=== PATIENT | female | born 1980 | race Caucasian/White ===

== ENCOUNTER → 2016-09-20 | Outpatient (CLI) | payer OTHER ==
[~2016-09-20] MED LIST: CIPR500T87 PO; NO HOME MEDS
[2016-09-20 09:47] LABS: ASPARTATE AMINO TRANSFERASE 15 U/L (15-37); BLOOD UREA NITROGEN 16 mg/dL (7-18)
== END | disposition home or self-care (01) ==
LOC: CFH 06:53
PROVIDERS: ATTEND Nurse Practitioner Family
DX: Z00.00 Encounter for general adult medical examination without abnormal findings (principal); J30.9 Allergic rhinitis, unspecified; R53.83 Other fatigue; E66.09 Other obesity due to excess calories; R57.0 Cardiogenic shock
CPT/HCPCS: 36415; 80053; 80061; 82306; 84439; 84443; 85025

== ENCOUNTER 2017-02-25 12:23 | Day surgery (SDC) | payer OTHER ==
[~2017-02-25] VITALS: Ht 163.8 cm; Wt 89.8 kg
[~2017-02-25 12:23] MED LIST changes: +COCAINE TOPICAL SOLN 4%, 4ML ONE; +EPINEPHRINE 1 MG/ML, 1ML ONE; +FENTANYL PF 100 MCG/2ML ONE; +LIDOCAINE/PF 1%, 30ML ONE; +MIDAZOLAM 1 MG/ML, 2ML ONE; +OXYMETAZOLINE NASAL SPRAY 0.05%, 15ML ONE
[2017-02-25] MEDS ORDERED: LACTATED RINGERS 1,000 ML IV SCH (13:13)
[2017-02-25] MEDS ORDERED: REPLENEX PO (13:22)
[2017-02-25] MEDS ORDERED: CYAN10005 PO (13:22)
[2017-02-25 13:42] VITALS: BP 111/74
[2017-02-25 13:54] LABS: HCG UR LOT HCG7030192
[2017-02-25 14:11] LABS: HCG UR OBC PASS
[2017-02-25] MEDS ORDERED: ONDANSETRON 2MG/ML, 2ML ONE (14:30)
[2017-02-25] MEDS ORDERED: NEOSTIGMINE 1 MG/ML, 10ML ONE (14:30)
[2017-02-25] MEDS ORDERED: ROCURONIUM 10MG/ML,5ML ONE (14:30)
[2017-02-25] MEDS ORDERED: DEXAMETHASONE 4 MG/ML, 1ML ONE (14:30)
[2017-02-25] MEDS ORDERED: PROPOFOL 10 MG/ML, 20ML ONE (14:30)
[2017-02-25] MEDS ORDERED: SUGAMMADEX 200 MG/2 ML IVPush ONE (14:30)
[2017-02-25] MEDS ORDERED: GLYCOPYRROLATE 0.4 MG/2 ML, 2ML ONE (14:30)
[2017-02-25] MEDS ORDERED: BACITRACIN OINT 500U/GM, 15 GM TP ONE (15:34)
[2017-02-25] MEDS ORDERED: BACITRACIN OINT 500U/GM, 15 GM ONE (15:58)
[2017-02-25] MEDS ORDERED: ACETAMINOPHEN 650 MG/20.3 ML UDC ONE (16:43)
[2017-02-25] MEDS ORDERED: OXYcodone 5 MG/5 ML ORAL.SOL UDC ONE (16:43)
[2017-02-25] MEDS ORDERED: ACETAMINOPHEN 325 MG TABLET PO PRN (17:00)
[2017-02-25] MEDS ORDERED: OXYcodone 5 MG/5 ML ORAL.SOL UDC PO PRN (17:00)
[2017-02-25] MEDS ORDERED: FENTANYL PF 100 MCG/2ML ONE (17:56)
== END 2017-02-25 19:00 | disposition home or self-care (01) ==
LOC: OUT 12:23
PROVIDERS: ATTEND Otolaryngology
DX: J34.2 Deviated nasal septum (principal); J32.9 Chronic sinusitis, unspecified; J32.1 Chronic frontal sinusitis; Z88.6 Allergy status to analgesic agent; Z88.1 Allergy status to other antibiotic agents; Z88.8 Allergy status to other drugs, medicaments and biological substances
CPT/HCPCS: 30520; 31254; 31256; 81025; 88304; 88311; J0171; J1100; J2250; J2405; J2704; J2710; J3010; J3490; J7120

== ENCOUNTER 2017-02-25 23:40 | Emergency (ER) | payer OTHER ==
[~2017-02-25] VITALS: Ht 167.6 cm; Wt 92.0 kg
[~2017-02-25 23:40] MED LIST changes: -COCAINE TOPICAL SOLN 4%, 4ML ONE; +CYAN10005 PO; -EPINEPHRINE 1 MG/ML, 1ML ONE; -FENTANYL PF 100 MCG/2ML ONE; -LIDOCAINE/PF 1%, 30ML ONE; -MIDAZOLAM 1 MG/ML, 2ML ONE; -OXYMETAZOLINE NASAL SPRAY 0.05%, 15ML ONE; +REPLENEX PO
[2017-02-25] MEDS ORDERED: LIDOCAINE 1%, 20ML ONE (23:56)
[2017-02-25] MEDS ORDERED: OXYMETAZOLINE NASAL SPRAY 0.05%, 15ML ONE (23:56)
[2017-02-26] MEDS ORDERED: HYDROmorphone 1 MG/ML, 1ML ONE (00:08)
[2017-02-26] MEDS ORDERED: ONDANSETRON 2MG/ML, 2ML ONE (00:09)
[2017-02-26] MEDS ORDERED: SODIUM CHLORIDE FLUSH 10ML SYR IVF ONE (00:30)
[2017-02-26] MEDS ORDERED: HYDROmorphone 1 MG/ML, 1ML IVPush PRN (00:30)
[2017-02-26] MEDS ORDERED: SODIUM CHLORIDE 0.9% 1,000ML IVBOLUS ONE (00:30)
[2017-02-26] MEDS ORDERED: ONDANSETRON 2MG/ML, 2ML IVPush ONE (00:30)
[2017-02-26 00:46] VITALS: BP 139/74
== END 2017-02-26 00:49 | disposition home or self-care (01) ==
LOC: ED 23:59
DX: R04.0 Epistaxis (principal); G89.18 Other acute postprocedural pain; Z88.5 Allergy status to narcotic agent; Z88.8 Allergy status to other drugs, medicaments and biological substances
CPT/HCPCS: 96374; 96375; 99284; J1170; J2405; J7030

== ENCOUNTER → 2018-02-19 | Outpatient (CLI) | payer OTHER ==
[~2018-02-19] MED LIST changes: +FLUORESCEIN SODIUM 500 MG/5 ML ONE; +INDIGO CARMINE 0.8%, 5ML ONE; +LIDOCAINE 1%-EPI 1:100K, 30ML ONE; +NEOMY/POLYMYXIN B GU IRR. 1 ML IRRIG ONE; +None at this time; +THROMBIN 5,000 UNIT VIAL TP ONE
[2018-02-19 12:29] LABS: BASOPHILS # (AUTO) 0.03 x10^3/uL (0-0.1); BASOPHILS % (AUTO) 0 % (0-1); EOSINOPHILS # (AUTO) 0.38 x10^3/uL (0-0.4); EOSINOPHILS % (AUTO) 4 % (1-7); LYMPHOCYTES # (AUTO) 1.64 x10^3/uL (1-3.4); LYMPHOCYTES % (AUTO) 17 % (22-44); MD NO; MEAN CORPUSCULAR HEMOGLOBIN 31.3 pg (27.0-34.8); MEAN CORPUSCULAR HGB CONC 34.2 g/dL (32.4-35.8); MEAN CORPUSCULAR VOLUME 91.6 fL (80-100); MEAN PLATELET VOLUME 10.3 fL (7.4-10.4); MONOCYTES # (AUTO) 0.64 x10^3/uL (0.2-0.8); MONOCYTES % (AUTO) 7 % (2-9); NEUTROPHILS # (AUTO) 7.01 x10^3/uL (1.8-6.8); NEUTROPHILS % (AUTO) 72 % (42-75); PLATELET COUNT 197 x10^3/uL (130-400); RED BLOOD COUNT 4.77 x10^6/uL (3.82-5.3); RED CELL DISTRIBUTION WIDTH 13.8 % (9.6-15.2)
[2018-02-19 12:31] LABS: CULTURE INDICATED? NO; MICROSCOPIC NOT IND
[2018-02-19 12:41] LABS: ALANINE AMINOTRANSFERASE 34 U/L (12-78); ALBUMIN 3.7 g/dL (3.4-5.0); ANION GAP 8 mmol/L (5-15); CALCIUM 8.6 mg/dL (8.5-10.1); CHLORIDE 107 mmol/L (98-107); CREATININE 0.71 mg/dL (0.55-1.02)
[2018-02-19 12:46] LABS: ALKALINE PHOSPHATASE 90 U/L (45-117); BILIRUBIN,TOTAL 0.4 mg/dL (0.2-1.0); TOTAL PROTEIN 7.8 g/dL (6.4-8.2)
== END | disposition home or self-care (01) ==
LOC: STAR 11:05
PROVIDERS: ATTEND Obstetrics & Gynecology Gynecology
DX: Z01.818 Encounter for other preprocedural examination (principal); N92.0 Excessive and frequent menstruation with regular cycle; N94.6 Dysmenorrhea, unspecified; N39.3 Stress incontinence (female) (male)
CPT/HCPCS: 36415; 80053; 81003; 84703; 85025

== ENCOUNTER 2018-02-25 05:39 | Day surgery (SDC) | payer OTHER ==
[~2018-02-25] VITALS: Ht 165.1 cm; Wt 105.0 kg
[~2018-02-25 05:39] MED LIST changes: -FLUORESCEIN SODIUM 500 MG/5 ML ONE; -INDIGO CARMINE 0.8%, 5ML ONE; -LIDOCAINE 1%-EPI 1:100K, 30ML ONE; -NEOMY/POLYMYXIN B GU IRR. 1 ML IRRIG ONE; -THROMBIN 5,000 UNIT VIAL TP ONE
[2018-02-25 06:05] VITALS: BP 144/99
[2018-02-25] MEDS: LACTATED RINGERS 1,000 ML IV SCH ×2 (06:28→14:03)
[2018-02-25 06:49] LABS: HCG UR SG 1.022 (1.003-1.030)
[2018-02-25] MEDS ORDERED: MIDAZOLAM 1 MG/ML, 2ML ONE (07:17)
[2018-02-25] MEDS ORDERED: FENTANYL PF 250 MCG/5ML ONE (07:17)
[2018-02-25] MEDS ORDERED: PROPOFOL 10 MG/ML, 20ML ONE (07:20)
[2018-02-25] MEDS ORDERED: ONDANSETRON ODT 8 MG PO ONE (07:30)
[2018-02-25] MEDS ORDERED: SCOPOLAMINE PATCH, 1.5MG PATCH.TD72 TD ONE (07:30)
[2018-02-25] MEDS ORDERED: OxyconTIN ER 10 MG TAB.ER PO ONE (07:30)
[2018-02-25] MEDS ORDERED: ACETAMINOPHEN 500 MG TABLET PO ONE (07:30)
[2018-02-25] MEDS ORDERED: SUGAMMADEX 200 MG/2 ML IVPush ONE (07:57)
[2018-02-25] MEDS ORDERED: hydrALAzine 20 MG/ML, 1ML IV PRN (08:00)
[2018-02-25] MEDS ORDERED: FENTANYL PF 100 MCG/2ML IV PRN (08:00)
[2018-02-25] MEDS ORDERED: PROMETHAZINE 12.5 MG SUPP PR PRN (08:00)
[2018-02-25] MEDS ORDERED: OXYcodone 5 MG/5 ML ORAL.SOL UDC PO PRN (08:00)
[2018-02-25] MEDS ORDERED: LABETALOL 5MG/ML, 20ML IV PRN (08:00)
[2018-02-25] MEDS ORDERED: ROCURONIUM 10MG/ML,5ML ONE (08:00)
[2018-02-25] MEDS ORDERED: DEXAMETHASONE 4 MG/ML, 1ML ONE ×3 (08:00→15:49)
[2018-02-25] MEDS ORDERED: PROMETHAZINE 25 MG/ML, 1ML IV PRN (08:00)
[2018-02-25] MEDS ORDERED: ONDANSETRON 2MG/ML, 2ML IV PRN (08:00)
[2018-02-25] MEDS ORDERED: MIDAZOLAM 1 MG/ML, 2ML IV PRN (08:00)
[2018-02-25] MEDS ORDERED: ALBUTEROL SULFATE 2.5 MG/3 ML NPPB PRN (08:00)
[2018-02-25] MEDS ORDERED: LORazepam 2 MG/ML, 1ML IVPush PRN (08:00)
[2018-02-25] MEDS ORDERED: EPHEDRINE 50 MG/ML, 1ML IVPush PRN (08:00)
[2018-02-25] MEDS ORDERED: HALOPERIDOL 5 MG/ML IV PRN (08:00)
[2018-02-25] MEDS ORDERED: ONDANSETRON ODT 8 MG PO PRN (08:00)
[2018-02-25] MEDS ORDERED: MEPERIDINE/PF 25MG/0.5ML IVPush PRN (08:00)
[2018-02-25] MEDS ORDERED: HYDROmorphone 1 MG/ML, 1ML IV PRN (08:00)
[2018-02-25] MEDS ORDERED: FENTANYL PF 100 MCG/2ML ONE (08:27)
[2018-02-25] MEDS ORDERED: DIPHENHYDRAMINE 50 MG/ML, 1ML IVPush PRN (14:00)
[2018-02-25] MEDS ORDERED: DIPHENHYDRAMINE 50 MG/ML, 1ML ONE (15:49)
[2018-02-25] MEDS ORDERED: KETOROLAC 30 MG/1 ML ONE (15:49)
[2018-02-25] MEDS ORDERED: CEFAZOLIN 1,000 MG ONE (15:49)
== END 2018-02-25 17:45 | disposition home or self-care (01) ==
LOC: OUT 05:39
PROVIDERS: ATTEND Obstetrics & Gynecology Gynecology
DX: D25.1 Intramural leiomyoma of uterus (principal); N92.1 Excessive and frequent menstruation with irregular cycle; N39.3 Stress incontinence (female) (male); N94.6 Dysmenorrhea, unspecified; N81.11 Cystocele, midline; N88.8 Other specified noninflammatory disorders of cervix uteri; Z88.8 Allergy status to other drugs, medicaments and biological substances
CPT/HCPCS: 36415; 57288; 58262; 81025; 85014; 85018; 88307; C1771; J0690; J1100; J1200; J1885; J2250; J2704; J3010; J3490; J7120; Q0162

== ENCOUNTER 2018-03-14 08:34 | Inpatient (IN) | payer OTHER ==
[~2018-03-14] VITALS: Ht 165.1 cm; Wt 103.1 kg
[2018-03-14] MEDS: LACTATED RINGERS 1,000 ML IV SCH ×3 (09:21→21:33)
[2018-03-14 09:22] VITALS: BP 106/72
[2018-03-14] MEDS ORDERED: HYDR-3237 PO (09:22)
[2018-03-14] MEDS ORDERED: FENTANYL PF 250 MCG/5ML ONE (10:15)
[2018-03-14] MEDS ORDERED: MIDAZOLAM 1 MG/ML, 2ML ONE (10:15)
[2018-03-14] MEDS ORDERED: DEXAMETHASONE 4 MG/ML, 1ML ONE ×2 (10:20)
[2018-03-14] MEDS ORDERED: SILVER NITRATE STICK TP ONE (10:21)
[2018-03-14] MEDS ORDERED: LIDOCAINE 1%-EPI 1:100K, 30ML ONE (10:21)
[2018-03-14] MEDS ORDERED: FLUORESCEIN SODIUM 500 MG/5 ML ONE (10:21)
[2018-03-14] MEDS ORDERED: METHYLENE BLUE 10 MG/ML 10ML ONE (10:21)
[2018-03-14] MEDS ORDERED: METRONIDAZOLE PMX 500MG/100ML 100 ML ONE (10:25)
[2018-03-14] MEDS ORDERED: GABAPENTIN 300 MG CAPSULE PO ONE (10:30)
[2018-03-14] MEDS ORDERED: OxyconTIN ER 20 MG TAB.ER PO ONE (10:30)
[2018-03-14] MEDS ORDERED: FAMOTIDINE 20 MG TABLET PO ONE (10:30)
[2018-03-14] MEDS ORDERED: ACETAMINOPHEN 500 MG TABLET PO ONE (10:30)
[2018-03-14] MEDS ORDERED: CEFOTETAN 2 GM ONE (10:32)
[2018-03-14] MEDS ORDERED: ROCURONIUM 10 MG/ML,10ML ONE (10:32)
[2018-03-14] MEDS ORDERED: ONDANSETRON 2MG/ML, 2ML IV PRN (11:00)
[2018-03-14] MEDS ORDERED: LABETALOL 5MG/ML, 20ML IV PRN (11:00)
[2018-03-14] MEDS ORDERED: PROMETHAZINE 25 MG/ML, 1ML IV PRN (11:00)
[2018-03-14] MEDS ORDERED: MEPERIDINE/PF 25MG/0.5ML IVPush PRN (11:00)
[2018-03-14] MEDS ORDERED: OXYcodone 5 MG/5 ML ORAL.SOL UDC PO PRN (11:00)
[2018-03-14] MEDS ORDERED: FENTANYL PF 100 MCG/2ML IV PRN (11:00)
[2018-03-14] MEDS ORDERED: ONDANSETRON 2MG/ML, 2ML ONE ×2 (11:20→12:10)
[2018-03-14] MEDS ORDERED: PROPOFOL 10 MG/ML, 20ML ONE (11:20)
[2018-03-14] MEDS ORDERED: HYDROmorphone 2 MG/ML, 1ML ONE (12:16)
[2018-03-14] MEDS ORDERED: OXYcodone 5 MG/5 ML ORAL.SOL UDC ONE (12:16)
[2018-03-14] MEDS ORDERED: FENTANYL PF 100 MCG/2ML ONE (12:16)
[2018-03-14] MEDS: HYDROmorphone 1 MG/ML, 1ML IV PRN ×4 (12:27→13:41)
[2018-03-14] MEDS ORDERED: HYDROmorphone 2 MG/ML, 1ML IV PRN (12:30)
[2018-03-14] MEDS ORDERED: PROMETHAZINE 25 MG/ML, 1ML ONE (12:36)
[2018-03-14] MEDS ORDERED: DIPHENHYDRAMINE 50 MG/ML, 1ML ONE (13:11)
[2018-03-14] MEDS ORDERED: DIPHENHYDRAMINE 50 MG/ML, 1ML IVPush PRN (13:30)
[2018-03-14] MEDS ORDERED: LACTATED RINGERS 1,000 ML IV SCH (14:30)
[2018-03-14] MEDS ORDERED: ENOXAPARIN 40 MG/0.4 ML SQ SCH (14:30)
[2018-03-14] MEDS: CEFOTETAN PMX 2GM/50ML 50 ML IVPB SCH (15:14)
[2018-03-14] MEDS: METRONIDAZOLE PMX 500MG/100ML 100 ML IV SCH ×3 (16:56→18:28)
[2018-03-14] MEDS: KETOROLAC 30 MG/1 ML IV PRN (19:33)
[2018-03-14 19:40] VITALS: BP 109/74
[2018-03-14] MEDS ORDERED: OXYcodone/APAP 5/325MG TABLET ONE (20:02)
[2018-03-14] MEDS: OXYcodone/APAP 5/325MG TABLET PO PRN (20:04)
[2018-03-15] MEDS: OXYcodone/APAP 5/325MG TABLET PO PRN ×3 (00:05→08:13)
[2018-03-15 01:00] VITALS: BP 110/72
[2018-03-15] MEDS: KETOROLAC 30 MG/1 ML IV PRN (02:22)
[2018-03-15] MEDS: CEFOTETAN PMX 2GM/50ML 50 ML IVPB SCH (03:08)
[2018-03-15] MEDS ORDERED: METRONIDAZOLE PMX 500MG/100ML 100 ML IV SCH (04:00)
[2018-03-15 05:54] LABS: MEAN CORPUSCULAR HEMOGLOBIN 30.8 pg (27.0-34.8); MEAN CORPUSCULAR HGB CONC 34.6 g/dL (32.4-35.8); MEAN CORPUSCULAR VOLUME 89.1 fL (80-100); MEAN PLATELET VOLUME 9.5 fL (7.4-10.4); PLATELET COUNT 210 x10^3/uL (130-400); RED BLOOD COUNT 3.33 x10^6/uL (3.82-5.3); RED CELL DISTRIBUTION WIDTH 13.6 % (9.6-15.2)
[2018-03-15 06:02] LABS: CHLORIDE 107 mmol/L (98-107)
[2018-03-15 06:11] LABS: ANION GAP 9 mmol/L (5-15); CALCIUM 8.4 mg/dL (8.5-10.1); CREATININE 1.01 mg/dL (0.55-1.02)
[2018-03-15 06:21] LABS: BASOPHILS # (AUTO) 0.02 x10^3/uL (0-0.1); BASOPHILS % (AUTO) 0 % (0-1); EOSINOPHILS % (AUTO) 0 % (1-7); LYMPHOCYTES # (AUTO) 0.59 x10^3/uL (1-3.4); LYMPHOCYTES % (AUTO) 4 % (22-44); MD SCAN; MONOCYTES # (AUTO) 0.64 x10^3/uL (0.2-0.8); MONOCYTES % (AUTO) 4 % (2-9); NEUTROPHILS % (AUTO) 91 % (42-75)
[2018-03-15 07:21] VITALS: BP 104/68
[2018-03-15] MEDS: LACTATED RINGERS 1,000 ML IV SCH ×2 (08:00→08:12)
[2018-03-15] MEDS ORDERED: CIPR500T87 PO (09:01)
[2018-03-15] MEDS ORDERED: ENOX40SY4 SQ (09:02)
[2018-03-15] MEDS ORDERED: METR500T PO (09:02)
[2018-03-15 10:46] VITALS: BP 112/72
== END 2018-03-15 11:16 | disposition home or self-care (01) | DRG 743 ==
LOC: OUT 08:34 → 4NOR 14:13 → OUT 16:35 → 4NOR 16:35
PROVIDERS: ADMIT Obstetrics & Gynecology; ATTEND Obstetrics & Gynecology Gynecology
PROC: 0U904ZZ Drainage of Right Ovary, Percutaneous Endoscopic Approach (ICD-10-PCS; 2018-03-14)
PROC: 0W9J4ZZ Drainage of Pelvic Cavity, Percutaneous Endoscopic Approach (ICD-10-PCS; principal; 2018-03-14 10:30)
DX: N83.201 Unspecified ovarian cyst, right side (principal); N94.89 Other specified conditions associated with female genital organs and menstrual cycle; R32 Unspecified urinary incontinence; K66.0 Peritoneal adhesions (postprocedural) (postinfection); Z90.710 Acquired absence of both cervix and uterus; Z90.79 Acquired absence of other genital organ(s); Z88.8 Allergy status to other drugs, medicaments and biological substances; Z88.5 Allergy status to narcotic agent; Z90.49 Acquired absence of other specified parts of digestive tract
CPT/HCPCS: 36415; S0074; 80048; 85025; G0378; J1100; J1170; J1650; J1885; J2250; J2405; J2550; J2704; J3010; J3490; J7120; Q9968

== ENCOUNTER 2018-03-18 13:51 | Inpatient (IN) | payer OTHER ==
[~2018-03-18] VITALS: Ht 165.1 cm; Wt 103.0 kg
[~2018-03-18 13:51] MED LIST changes: +ENOX40SY4 SQ; +HYDR-3237 PO; +METR500T PO
[2018-03-18] MEDS ORDERED: ONDANSETRON 2MG/ML, 2ML IVPush ONE (14:30)
[2018-03-18] MEDS ORDERED: LORazepam 2 MG/ML, 1ML IVPush ONE (14:30)
[2018-03-18] MEDS ORDERED: SODIUM CHLORIDE 0.9% 1,000ML IVBOLUS ONE (14:30)
[2018-03-18] MEDS ORDERED: ONDANSETRON 2MG/ML, 2ML ONE (14:32)
[2018-03-18] MEDS ORDERED: LORazepam 2 MG/ML, 1ML ONE (14:33)
[2018-03-18 14:52] LABS: ALBUMIN 3.4 g/dL (3.4-5.0); ANION GAP 12 mmol/L (5-15); CALCIUM 9.4 mg/dL (8.5-10.1); CHLORIDE 104 mmol/L (98-107); CREATININE 0.81 mg/dL (0.55-1.02)
[2018-03-18 14:55] LABS: TROPONIN I < 0.015 ng/mL (0.000-0.045)
[2018-03-18 15:17] LABS: BASOPHILS # (AUTO) 0.01 x10^3/uL (0-0.1); BASOPHILS % (AUTO) 0 % (0-1); EOSINOPHILS % (AUTO) 2 % (1-7); LYMPHOCYTES # (AUTO) 1.36 x10^3/uL (1-3.4); LYMPHOCYTES % (AUTO) 13 % (22-44); MD SCAN; MEAN CORPUSCULAR HGB CONC 34.4 g/dL (32.4-35.8); MEAN CORPUSCULAR VOLUME 87.4 fL (80-100); MEAN PLATELET VOLUME 8.9 fL (7.4-10.4); MONOCYTES # (AUTO) 0.41 x10^3/uL (0.2-0.8); MONOCYTES % (AUTO) 4 % (2-9); NEUTROPHILS # (AUTO) 8.32 x10^3/uL (1.8-6.8); NEUTROPHILS % (AUTO) 81 % (42-75); PLATELET COUNT 380 x10^3/uL (130-400); RED BLOOD COUNT 4.87 x10^6/uL (3.82-5.3); RED CELL DISTRIBUTION WIDTH 13.9 % (9.6-15.2)
[2018-03-18] MEDS ORDERED: OMNIPAQUE 350 MG/ML, 100ML BOTTLE ONE (15:39)
[2018-03-18] MEDS ORDERED: METRONIDAZOLE PMX 500MG/100ML 100 ML ONE (16:25)
[2018-03-18] MEDS ORDERED: AMPICILLIN/SULBACTAM 3 GM in SODIUM CHLORIDE 0.9% 100 ML IV ONE (16:30)
[2018-03-18] MEDS ORDERED: METRONIDAZOLE PMX 500MG/100ML 100 ML IV ONE (16:30)
[2018-03-18 16:41] LABS: MICROSCOPIC AUTO
[2018-03-18 16:43] LABS: CULTURE INDICATED? YES
[2018-03-18 17:19] LABS: CLOSTRIDIUM DIFFICILE ANTIGEN NEGATIVE; CLOSTRIDIUM DIFFICILE TOXIN NEGATIVE (Negative)
[2018-03-18 18:04] VITALS: BP 118/77
[2018-03-18 20:17] VITALS: BP 111/63
[2018-03-18] MEDS: OXYcodone/APAP 7.5/325MG TABLET PO PRN (20:56)
[2018-03-19] MEDS: LACTATED RINGERS 1,000 ML IV SCH ×4 (02:12→23:10)
[2018-03-19 02:25] VITALS: BP 109/71
[2018-03-19 07:17] VITALS: BP 126/83
[2018-03-19] MEDS ORDERED: HYDROmorphone 2 MG/ML, 1ML ONE ×3 (08:31→17:32)
[2018-03-19] MEDS: ONDANSETRON 2MG/ML, 2ML IVPush PRN (08:41)
[2018-03-19] MEDS: HYDROmorphone 1 MG/ML, 1ML IV PRN ×3 (08:41→17:35)
[2018-03-19] MEDS ORDERED: LIDOCAINE-MPF 1%, 5ML ONE (09:47)
[2018-03-19 12:08] VITALS: BP 119/74
[2018-03-19] MEDS: OXYcodone/APAP 7.5/325MG TABLET PO PRN ×2 (14:29→20:01)
[2018-03-19] MEDS ORDERED: PHARMACOKINETIC MONITORING MC PRN ×2 (17:00→18:00)
[2018-03-19] MEDS ORDERED: VANCOMYCIN PER PHARMACY MC PRN (17:00)
[2018-03-19] MEDS: PIPERACILLIN/TAZO/PMX 3.375GM 50 ML IV SCH ×2 (17:35→23:17)
[2018-03-19] MEDS ORDERED: VANCOMYCIN 2,000 MG in SODIUM CHLORIDE 0.9% 500 ML IV SCH (18:00)
[2018-03-19] MEDS: VANCOMYCIN 2,000 MG in SODIUM CHLORIDE 0.9% 500 ML IV SCH (18:32)
[2018-03-19 18:57] VITALS: BP 99/64
[2018-03-20 00:37] VITALS: BP 94/51
[2018-03-20] MEDS: OXYcodone/APAP 7.5/325MG TABLET PO PRN ×4 (02:48→19:01)
[2018-03-20 04:58] LABS: ALBUMIN 2.6 g/dL (3.4-5.0); ANION GAP 8 mmol/L (5-15); CHLORIDE 109 mmol/L (98-107)
[2018-03-20 05:01] LABS: BASOPHILS # (AUTO) 0.03 x10^3/uL (0-0.1); BASOPHILS % (AUTO) 0 % (0-1); EOSINOPHILS # (AUTO) 0.28 x10^3/uL (0-0.4); EOSINOPHILS % (AUTO) 4 % (1-7); LYMPHOCYTES # (AUTO) 0.87 x10^3/uL (1-3.4); LYMPHOCYTES % (AUTO) 11 % (22-44); MD NO; MEAN CORPUSCULAR HEMOGLOBIN 29.9 pg (27.0-34.8); MEAN CORPUSCULAR VOLUME 88.1 fL (80-100); MEAN PLATELET VOLUME 8.6 fL (7.4-10.4); MONOCYTES # (AUTO) 0.45 x10^3/uL (0.2-0.8); MONOCYTES % (AUTO) 6 % (2-9); NEUTROPHILS # (AUTO) 6.35 x10^3/uL (1.8-6.8); NEUTROPHILS % (AUTO) 80 % (42-75); PLATELET COUNT 262 x10^3/uL (130-400); RED BLOOD COUNT 4.02 x10^6/uL (3.82-5.3); RED CELL DISTRIBUTION WIDTH 14.3 % (9.6-15.2)
[2018-03-20 05:02] LABS: HCT (SEDRATE) 35.4 % (34.6-47.8)
[2018-03-20 05:07] LABS: ALANINE AMINOTRANSFERASE 114 U/L (12-78); ALKALINE PHOSPHATASE 80 U/L (45-117); BILIRUBIN,TOTAL 0.2 mg/dL (0.2-1.0); CREATININE 0.66 mg/dL (0.55-1.02); TOTAL PROTEIN 6.4 g/dL (6.4-8.2)
[2018-03-20] MEDS: PIPERACILLIN/TAZO/PMX 3.375GM 50 ML IV SCH ×3 (05:47→16:56)
[2018-03-20] MEDS: VANCOMYCIN 2,000 MG in SODIUM CHLORIDE 0.9% 500 ML IV SCH (06:16)
[2018-03-20] MEDS ORDERED: LACTATED RINGERS 1,000 ML IV SCH (08:00)
[2018-03-20 08:11] VITALS: BP 109/73
[2018-03-20] MEDS: ONDANSETRON 2MG/ML, 2ML IVPush PRN ×2 (11:11→19:42)
[2018-03-20 13:45] VITALS: BP 104/64
[2018-03-20 19:39] VITALS: BP 128/90
[2018-03-21] MEDS: PIPERACILLIN/TAZO/PMX 3.375GM 50 ML IV SCH ×5 (00:11→23:09)
[2018-03-21 00:36] VITALS: BP 121/79
[2018-03-21] MEDS: OXYcodone/APAP 7.5/325MG TABLET PO PRN ×3 (04:54→23:09)
[2018-03-21 06:02] LABS: BASOPHILS # (AUTO) 0.02 x10^3/uL (0-0.1); BASOPHILS % (AUTO) 0 % (0-1); EOSINOPHILS # (AUTO) 0.29 x10^3/uL (0-0.4); EOSINOPHILS % (AUTO) 4 % (1-7); LYMPHOCYTES # (AUTO) 1.04 x10^3/uL (1-3.4); LYMPHOCYTES % (AUTO) 14 % (22-44); MD NO; MEAN CORPUSCULAR HEMOGLOBIN 29.9 pg (27.0-34.8); MEAN CORPUSCULAR HGB CONC 34.1 g/dL (32.4-35.8); MEAN CORPUSCULAR VOLUME 87.6 fL (80-100); MEAN PLATELET VOLUME 8.9 fL (7.4-10.4); MONOCYTES # (AUTO) 0.52 x10^3/uL (0.2-0.8); MONOCYTES % (AUTO) 7 % (2-9); NEUTROPHILS % (AUTO) 76 % (42-75); PLATELET COUNT 270 x10^3/uL (130-400); RED BLOOD COUNT 4.08 x10^6/uL (3.82-5.3); RED CELL DISTRIBUTION WIDTH 14.2 % (9.6-15.2)
[2018-03-21 06:09] LABS: ANION GAP 9 mmol/L (5-15); CALCIUM 8.2 mg/dL (8.5-10.1); CHLORIDE 109 mmol/L (98-107)
[2018-03-21 06:12] LABS: CREATININE 0.67 mg/dL (0.55-1.02)
[2018-03-21 06:49] LABS: HCT (SEDRATE) 35.8 % (34.6-47.8)
[2018-03-21 08:00] VITALS: BP 109/77
[2018-03-21] MEDS: ONDANSETRON 2MG/ML, 2ML IVPush PRN (08:45)
[2018-03-21] MEDS ORDERED: SCOPOLAMINE PATCH, 1.5MG PATCH.TD72 TD ONE (10:30)
[2018-03-21 12:50] VITALS: BP 112/75
[2018-03-21 19:30] VITALS: BP 91/58
[2018-03-22 02:48] VITALS: BP 112/76
[2018-03-22] MEDS: PIPERACILLIN/TAZO/PMX 3.375GM 50 ML IV SCH ×4 (05:20→23:02)
[2018-03-22] MEDS: OXYcodone/APAP 7.5/325MG TABLET PO PRN ×2 (08:54→22:33)
[2018-03-22 09:00] VITALS: BP 112/71
[2018-03-22 14:18] VITALS: BP 121/65
[2018-03-22 20:42] VITALS: BP 116/82
[2018-03-23 02:53] VITALS: BP 105/62
[2018-03-23] MEDS: PIPERACILLIN/TAZO/PMX 3.375GM 50 ML IV SCH ×4 (05:02→22:50)
[2018-03-23 07:05] VITALS: BP 93/53
[2018-03-23] MEDS: OXYcodone/APAP 7.5/325MG TABLET PO PRN ×2 (12:38→21:57)
[2018-03-23 12:51] VITALS: BP 136/89
[2018-03-23] MEDS: ONDANSETRON 2MG/ML, 2ML IVPush PRN (13:53)
[2018-03-23 19:04] VITALS: BP 96/65
[2018-03-24 01:45] VITALS: BP 113/77
[2018-03-24 03:50] LABS: BASOPHILS # (AUTO) 0.13 x10^3/uL (0-0.1); BASOPHILS % (AUTO) 2 % (0-1); EOSINOPHILS # (AUTO) 0.32 x10^3/uL (0-0.4); EOSINOPHILS % (AUTO) 4 % (1-7); HCT (SEDRATE) 35.9 % (34.6-47.8); LYMPHOCYTES # (AUTO) 2.05 x10^3/uL (1-3.4); LYMPHOCYTES % (AUTO) 26 % (22-44); MD NO; MEAN CORPUSCULAR HEMOGLOBIN 29.9 pg (27.0-34.8); MEAN CORPUSCULAR HGB CONC 34.1 g/dL (32.4-35.8); MEAN CORPUSCULAR VOLUME 87.7 fL (80-100); MEAN PLATELET VOLUME 8.8 fL (7.4-10.4); MONOCYTES # (AUTO) 0.48 x10^3/uL (0.2-0.8); MONOCYTES % (AUTO) 6 % (2-9); NEUTROPHILS # (AUTO) 5.03 x10^3/uL (1.8-6.8); NEUTROPHILS % (AUTO) 63 % (42-75); PLATELET COUNT 283 x10^3/uL (130-400); RED BLOOD COUNT 4.09 x10^6/uL (3.82-5.3); RED CELL DISTRIBUTION WIDTH 14.3 % (9.6-15.2)
[2018-03-24 04:01] LABS: ALANINE AMINOTRANSFERASE 70 U/L (12-78); ALBUMIN 3.2 g/dL (3.4-5.0); ANION GAP 7 mmol/L (5-15); C-REACTIVE PROTEIN, QUANT 0.66 mg/dL (0.02-0.49); CALCIUM 8.7 mg/dL (8.5-10.1); CHLORIDE 110 mmol/L (98-107)
[2018-03-24 04:04] LABS: ALKALINE PHOSPHATASE 76 U/L (45-117); BILIRUBIN,TOTAL 0.3 mg/dL (0.2-1.0); TOTAL PROTEIN 7.1 g/dL (6.4-8.2)
[2018-03-24] MEDS: PIPERACILLIN/TAZO/PMX 3.375GM 50 ML IV SCH ×4 (05:08→22:39)
[2018-03-24 06:57] VITALS: BP 112/80
[2018-03-24 13:24] VITALS: BP 121/83
[2018-03-24] MEDS: ONDANSETRON 2MG/ML, 2ML IVPush PRN (19:57)
[2018-03-24 20:55] VITALS: BP 117/77
[2018-03-24] MEDS: OXYcodone/APAP 7.5/325MG TABLET PO PRN (22:40)
[2018-03-25 01:57] VITALS: BP 101/70
[2018-03-25] MEDS: PIPERACILLIN/TAZO/PMX 3.375GM 50 ML IV SCH ×2 (05:14→11:12)
[2018-03-25 07:17] VITALS: BP 105/71
[2018-03-25] MEDS ORDERED: ONDA4TAB10 PO (09:25)
[2018-03-25] MEDS ORDERED: SCOP1PAT11 TD (09:26)
[2018-03-25] MEDS ORDERED: HYDR-3653 PO (09:28)
[2018-03-25] MEDS ORDERED: PIPE3.375 IV (09:32)
[2018-03-25 13:17] VITALS: BP 127/85
[2018-03-25] MEDS ORDERED: ERTA1VIA4 IV (16:30)
[2018-03-25] MEDS ORDERED: ERTAPENEM 1 GM in SODIUM CHLORIDE 0.9% 50 ML IV SCH (16:30)
== END 2018-03-25 20:00 | disposition home or self-care (01) | DRG 862 ==
LOC: ED 15:34 → EDIP 16:21 → 4NOR 17:46
PROVIDERS: ADMIT Obstetrics & Gynecology Gynecology; ATTEND Obstetrics & Gynecology Gynecology
PROC: 0W9J30Z Drainage of Pelvic Cavity with Drainage Device, Percutaneous Approach (ICD-10-PCS; principal; 2018-03-19)
PROC: 02HV33Z Insertion of Infusion Device into Superior Vena Cava, Percutaneous Approach (ICD-10-PCS; 2018-03-20)
PROC: B5181ZA Fluoroscopy of Superior Vena Cava using Low Osmolar Contrast, Guidance (ICD-10-PCS; 2018-03-20)
PROC: B548ZZA Ultrasonography of Superior Vena Cava, Guidance (ICD-10-PCS; 2018-03-20)
DX: T81.40XA Infection following a procedure, unspecified, initial encounter (principal); A40.1 Sepsis due to streptococcus, group B; K65.1 Peritoneal abscess; T81.44XA Sepsis following a procedure, initial encounter; Y83.8 Other surgical procedures as the cause of abnormal reaction of the patient, or of later complication, without mention of misadventure at the time of the procedure; Y92.89 Other specified places as the place of occurrence of the external cause; Z82.49 Family history of ischemic heart disease and other diseases of the circulatory system; Z83.3 Family history of diabetes mellitus; Z83.2 Family history of diseases of the blood and blood-forming organs and certain disorders involving the immune mechanism; Z90.710 Acquired absence of both cervix and uterus
CPT/HCPCS: 36415; 36569; 49406; 71045; 71275; 74177; 75989; 76937; 77001; 80048; 80053; 81001; 82040; 83605; 84145; 84484; 85025; 85651; 86140; 87040; 87070; 87075; 87086; 87102; 87147; 87205; 87324; 89055; 93005; 96361; 96365; 96375; 99156; 99157; C1894; G0378; J0295; J1170; J1335; J2250; J2405; J2543; J3010; J3370; Q9967; C1729; C1751; C1769; J2060; J2310; J7030; J7040; J7120

== ENCOUNTER 2018-04-06 21:45 | Emergency (ER) | payer OTHER ==
[~2018-04-06] VITALS: Ht 165.1 cm; Wt 100.7 kg
[~2018-04-06 21:45] MED LIST changes: +ERTA1VIA4 IV; +HYDR-3653 PO; +ONDA4TAB10 PO; +PIPE3.375 IV; +SCOP1PAT11 TD
[2018-04-06] MEDS ORDERED: HYDROmorphone 2 MG/ML, 1ML ONE ×2 (22:29→23:36)
[2018-04-06] MEDS ORDERED: SODIUM CHLORIDE FLUSH 10ML SYR IVF ONE (22:30)
[2018-04-06] MEDS ORDERED: ONDANSETRON 2MG/ML, 2ML ONE (22:36)
[2018-04-06] MEDS: HYDROmorphone 2 MG/ML, 1ML IVPush PRN ×2 (22:39→23:50)
[2018-04-06 22:50] LABS: BASOPHILS # (AUTO) 0.04 x10^3/uL (0-0.1); BASOPHILS % (AUTO) 1 % (0-1); EOSINOPHILS # (AUTO) 0.58 x10^3/uL (0-0.4); EOSINOPHILS % (AUTO) 10 % (1-7); LYMPHOCYTES # (AUTO) 1.54 x10^3/uL (1-3.4); LYMPHOCYTES % (AUTO) 27 % (22-44); MD NO; MEAN CORPUSCULAR HEMOGLOBIN 29.2 pg (27.0-34.8); MEAN CORPUSCULAR HGB CONC 34.2 g/dL (32.4-35.8); MEAN CORPUSCULAR VOLUME 85.6 fL (80-100); MONOCYTES # (AUTO) 0.52 x10^3/uL (0.2-0.8); MONOCYTES % (AUTO) 9 % (2-9); NEUTROPHILS # (AUTO) 3.05 x10^3/uL (1.8-6.8); NEUTROPHILS % (AUTO) 53 % (42-75); PLATELET COUNT 230 x10^3/uL (130-400); RED BLOOD COUNT 4.54 x10^6/uL (3.82-5.3); RED CELL DISTRIBUTION WIDTH 14.2 % (9.6-15.2)
[2018-04-06] MEDS ORDERED: ONDANSETRON 2MG/ML, 2ML IVPush ONE (23:00)
[2018-04-06 23:03] LABS: ALANINE AMINOTRANSFERASE 49 U/L (12-78); ALBUMIN 3.4 g/dL (3.4-5.0); ANION GAP 9 mmol/L (5-15); CALCIUM 8.6 mg/dL (8.5-10.1); CHLORIDE 110 mmol/L (98-107); CREATININE 0.65 mg/dL (0.55-1.02)
[2018-04-06 23:05] LABS: ALKALINE PHOSPHATASE 112 U/L (45-117); BILIRUBIN,TOTAL 0.2 mg/dL (0.2-1.0); TOTAL PROTEIN 7.6 g/dL (6.4-8.2)
[2018-04-06] MEDS ORDERED: OMNIPAQUE 350 MG/ML, 100ML BOTTLE ONE (23:15)
[2018-04-07 00:16] LABS: CULTURE INDICATED? YES; MICROSCOPIC INDICATED
[2018-04-07] MEDS ORDERED: METOCLOPRAMIDE 5 MG/ML, 2ML IVPush ONE (00:30)
[2018-04-07] MEDS ORDERED: METOCLOPRAMIDE 5 MG/ML, 2ML ONE (00:41)
[2018-04-07 01:29] VITALS: BP 125/76
== END 2018-04-07 02:08 | disposition home or self-care (01) ==
LOC: ED 22:43
DX: K91.89 Other postprocedural complications and disorders of digestive system (principal); R31.0 Gross hematuria
CPT/HCPCS: 36415; 74177; 80053; 81001; 83605; 83690; 85025; 87086; 96374; 96375; 96376; 99284; J1170; J2405; J2765; Q9967; 87077

== ENCOUNTER → 2018-04-11 | Outpatient (CLI) | payer OTHER ==
[~2018-04-11] MED LIST changes: +OMNIPAQUE 350 MG/ML, 100ML BOTTLE ONE
== END | disposition home or self-care (01) ==
LOC: RAD 09:30
PROVIDERS: ATTEND Internal Medicine Infectious Disease
DX: K65.1 Peritoneal abscess (principal); B95.4 Other streptococcus as the cause of diseases classified elsewhere
CPT/HCPCS: 74177; Q9967

== ENCOUNTER → 2018-05-07 | Outpatient (CLI) | payer OTHER | END | disposition home or self-care (01) | LOC: CFH 13:00 | PROVIDERS: ATTEND Nurse Practitioner Family | DX: R10.2 Pelvic and perineal pain (principal); N73.9 Female pelvic inflammatory disease, unspecified; Z90.710 Acquired absence of both cervix and uterus | CPT/HCPCS: 74177; Q9967 ==

== ENCOUNTER 2020-05-04 14:11 | Emergency (ER) | payer SELFPAY ==
[~2020-05-04] VITALS: Ht 162.6 cm; Wt 99.2 kg
[~2020-05-04 14:11] MED LIST changes: +CYAN-27 PO; -CYAN10005 PO; -OMNIPAQUE 350 MG/ML, 100ML BOTTLE ONE
[2020-05-04 14:20] VITALS: BP 146/103
--- NOTE | 2020-05-04 14:32 | NUR ---
PT IS "STAFF IN HOSPITAL AND SLIPPED ON UNMARKED WET MOPPED FLOOR AND BROKE FALL WITH RIGHT ARM" PT HAS C/O R WRIST AND SHOULDER PAIN
--- NOTE | 2020-05-04 14:49 | NUR ---
REPORT TO ANTONIA CONTE
== END 2020-05-04 15:15 | disposition home or self-care (01) ==
LOC: ED 15:00
DX: S63.501A Unspecified sprain of right wrist, initial encounter (principal); Z88.9 Allergy status to unspecified drugs, medicaments and biological substances; Z90.49 Acquired absence of other specified parts of digestive tract; Z90.710 Acquired absence of both cervix and uterus; Z79.899 Other long term (current) drug therapy; W01.0XXA Fall on same level from slipping, tripping and stumbling without subsequent striking against object, initial encounter; Y93.89 Activity, other specified; Y92.69 Other specified industrial and construction area as the place of occurrence of the external cause; Y99.0 Civilian activity done for income or pay
CPT/HCPCS: 29125; 99283

== ENCOUNTER 2021-01-10 14:34 | Outpatient (CLI) | payer OTHER ==
[~2021-01-10 14:34] MED LIST changes: -SCOP1PAT11 TD; +SCOP1PAT13 TD
== END 2021-01-10 23:59 | disposition home or self-care (01) ==
LOC: CFH 14:34
PROVIDERS: ATTEND Nurse Practitioner Family
DX: Z12.31 Encounter for screening mammogram for malignant neoplasm of breast (principal)
CPT/HCPCS: 77063; 77067

== ENCOUNTER 2021-01-21 06:36 | Emergency (ER) | payer OTHER ==
[~2021-01-21] VITALS: Ht 165.1 cm; Wt 105.6 kg
[2021-01-21 06:46] VITALS: BP 157/97
--- NOTE | 2021-01-21 07:10 | NUR ---
40 y/o F bib POV, Pt tripped going down stairs. pt c/o immediate paain to L foot. Continued pain with ambulation and pt states "I feel bones grinding" pt undressed and LLE elevated and ice applied. to see
--- NOTE | 2021-01-21 08:00 | NUR ---
pt resting in [facility], denies need for pain meds
[2021-01-21] MEDS ORDERED: ONDANSETRON ODT 4 MG ONE (08:28)
[2021-01-21] MEDS ORDERED: HYDROcodone/APAP 5/325 TABLET ONE (08:29)
[2021-01-21] MEDS ORDERED: ONDANSETRON ODT 4 MG PO ONE (08:30)
[2021-01-21] MEDS ORDERED: HYDROcodone/APAP 5/325 TABLET PO ONE (08:30)
--- NOTE | 2021-01-21 08:30 | NUR ---
pain meds requested. Pt manoj PO meds well. Pt has ride home
--- NOTE | 2021-01-21 09:33 | NUR ---
pt instructed on splint and crutches. No questions
== END 2021-01-21 10:31 | disposition home or self-care (01) ==
LOC: ED 09:16
DX: S92.325A Nondisplaced fracture of second metatarsal bone, left foot, initial encounter for closed fracture (principal); Z90.49 Acquired absence of other specified parts of digestive tract; W18.30XA Fall on same level, unspecified, initial encounter; Y93.89 Activity, other specified; Y92.009 Unspecified place in unspecified non-institutional (private) residence as the place of occurrence of the external cause; Y99.8 Other external cause status
CPT/HCPCS: 29515; 73630; 99283; Q0162

== ENCOUNTER 2021-01-23 11:07 | Outpatient (CLI) | payer OTHER | END 2021-01-23 23:59 | disposition home or self-care (01) | LOC: CFH 11:07 | PROVIDERS: ATTEND Physician Assistant | DX: S92.325A Nondisplaced fracture of second metatarsal bone, left foot, initial encounter for closed fracture (principal); S92.335A Nondisplaced fracture of third metatarsal bone, left foot, initial encounter for closed fracture; M79.672 Pain in left foot; S92.315A Nondisplaced fracture of first metatarsal bone, left foot, initial encounter for closed fracture; X58.XXXA Exposure to other specified factors, initial encounter; Y93.89 Activity, other specified; Y92.89 Other specified places as the place of occurrence of the external cause; Y99.8 Other external cause status ==